=== PATIENT | female | born 1980 | race Two or more races ===

== ENCOUNTER 2020-10-10 07:27 | Outpatient (CLI) | payer OTHER | END 2020-10-10 07:37 | disposition home or self-care (01) | LOC: RAD 07:27 | PROVIDERS: ATTEND Orthopaedic Surgery | DX: S92.425A Nondisplaced fracture of distal phalanx of left great toe, initial encounter for closed fracture (principal) ==

== ENCOUNTER 2020-11-13 07:49 | Outpatient (CLI) | payer OTHER | END 2020-11-13 07:56 | disposition home or self-care (01) | LOC: RAD 07:49 | PROVIDERS: ATTEND Orthopaedic Surgery | DX: S92.425D Nondisplaced fracture of distal phalanx of left great toe, subsequent encounter for fracture with routine healing (principal) ==